=== PATIENT | male | born 1955 | race Caucasian/White ===

== ENCOUNTER → 2018-01-14 | Outpatient (CLI) | payer BC ==
[~2018-01-14] MED LIST: DOXYCYCLINE 10100 MG PO; PEPCID40 MG PO
== END ==
LOC: BC 14:43
DX: N63.20 Unspecified lump in the left breast, unspecified quadrant (principal)

== ENCOUNTER → 2019-02-16 | Outpatient (CLI) | payer OTHER | LOC: CAT 09:44 | DX: R51 Headache (principal); L98.8 Other specified disorders of the skin and subcutaneous tissue ==